=== PATIENT | male | born 2000 | race African-American/Black ===

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

== ENCOUNTER 2022-12-20 11:15 | Emergency (ER) | payer MEDICAID ==
[~2022-12-20] VITALS: Ht 172.7 cm; Wt 61.0 kg
[2022-12-20 11:38] VITALS: O2SAT 100
[2022-12-20] MEDS ORDERED: DEXAMETHASONE 10 MG/ML VIAL IM ONE (12:00)
[2022-12-20] MEDS ORDERED: KETOROLAC 30MG/ML VIAL IM ONE (12:30)
[2022-12-20] MEDS ORDERED: ACET-2084 MT (12:43)
[2022-12-20] MEDS ORDERED: IBUP-2458 MT (12:43)
[2022-12-20 13:48] VITALS: BP 124/78; PULSE 74; RESP 18; TEMP 98.1
[2022-12-20 16:04] LABS: MONOTEST NEGATIVE (NEGATIVE)
== END 2022-12-20 14:30 | disposition home or self-care (01) ==
LOC: ER 12:00
DX: J02.0 Streptococcal pharyngitis (principal); F12.10 Cannabis abuse, uncomplicated
CPT/HCPCS: 87430; 86308; 96372; 99284; J1885; Z7610

== ENCOUNTER 2024-09-22 23:38 | Emergency (ER) | payer SELFPAY ==
[~2024-09-22] VITALS: Ht 172.7 cm; Wt 57.0 kg
[~2024-09-22 23:38] MED LIST: ACET-2084 MT; IBUP-2458 MT
[2024-09-22 23:53] VITALS: O2SAT 98
[2024-09-23] MEDS: DEXAMETHASONE 10 MG/ML VIAL PO ONE (01:00)
[2024-09-23] MEDS: ACETAMINOPHEN 325MG TABLET PO ONE (01:21)
[2024-09-23] MEDS ORDERED: PRED5TAB48 MT (04:02)
[2024-09-23] MEDS ORDERED: AMOX500T2 MT (04:06)
[2024-09-23 04:31] VITALS: BP 117/83; PULSE 74; RESP 15; TEMP 36.8; O2SAT 99
== END 2024-09-23 04:33 | disposition home or self-care (01) ==
LOC: ER 23:47
DX: J02.0 Streptococcal pharyngitis (principal); F12.90 Cannabis use, unspecified, uncomplicated; Z79.52 Long term (current) use of systemic steroids
CPT/HCPCS: 99283; 87430; J1100